=== PATIENT | male | born 1975 | race Two or more races ===

== ENCOUNTER 2018-08-19 08:49 | Emergency (ER) | payer OTHER ==
[~2018-08-19] VITALS: Ht 172.7 cm; Wt 87.5 kg
[~2018-08-19 08:49] MED LIST: IBUPROFEN800 MG PO; SEPTRA DS TABLE1 TAB PO
[2018-08-19] MEDS ORDERED: XANAX2 MG (09:37)
== END 2018-08-19 13:46 | disposition home or self-care (01) ==
LOC: ER 08:49
DX: N39.0 Urinary tract infection, site not specified (principal); R31.0 Gross hematuria